=== PATIENT | male | born 1980 | race Caucasian/White ===

== ENCOUNTER 2016-07-16 15:38 | Observation (INO) | payer OTHER ==
[~2016-07-16] VITALS: Ht 165.1 cm; Wt 52.6 kg
[~2016-07-16 15:38] MED LIST: KEFLEX500 MG PO; MOTRIN600 MG PO
[2016-07-16 16:42] LABS: HEMATOCRIT 36.2 % (38.0-50.0); MCH 29.1 PG (29.0-34.0); MCHC 35.1 G/DL (30.0-36.0); MCV 82.8 FL (86-99); MEAN PLAT.VOLUME 9.8 uM^3 (9.0-12.4); PLATELET COUNT 321 K/uL (156-360); RBC DIS.WIDTH-CV 12.2 % (11.8-14.6); RBC DIS.WIDTH-SD 35.9 % (39-53); RED BLOOD COUNT 4.37 M/uL (4.00-5.50)
[2016-07-16 16:51] LABS: CHLORIDE 107 mEq/L (99-109); POTASSIUM 4.6 mEq/L (3.7-5.4); SODIUM 144 mEq/L (136-147)
[2016-07-16 16:53] LABS: GLUCOSE 83 mg/dL (70-99)
[2016-07-16 16:55] LABS: ANION GAP 9 MEQ/L (2-14)
[2016-07-16 16:57] LABS: GFR ESTIMATE (CALCULATED) > 59 mL/min/
[2016-07-16 16:58] LABS: UREA NITROGEN (BUN) 13 mg/dL (9-23)
[2016-07-16 17:04] LABS: TROP-I INTERPRETATION NEGATIVE; TROPONIN-I 0.01 ng/mL (0.0-0.30)
[2016-07-16] MEDS ORDERED: KENALOG IN ORABA5 GM DT (21:42)
[2016-07-16 22:47] VITALS: BP 109/59
[2016-07-17 03:45] VITALS: BP 102/54
[2016-07-17] MEDS ORDERED: ANTIVERT25 MG PO (13:15)
[2016-07-17] MEDS ORDERED: Thiamine,Vitamin B1 PO (13:15)
[2016-07-17] MEDS ORDERED: FOLIC ACID1 MG PO (13:15)
== END 2016-07-17 14:36 ==
LOC: EME 15:38 → EDOF 21:31 → 5WEST 21:31
PROVIDERS: Emergency Medicine
DX: R42 Dizziness and giddiness (principal); R51 Headache; R26.2 Difficulty in walking, not elsewhere classified; H55.00 Unspecified nystagmus; Z98.1 Arthrodesis status; F10.20 Alcohol dependence, uncomplicated; F17.200 Nicotine dependence, unspecified, uncomplicated; K12.0 Recurrent oral aphthae; Z80.9 Family history of malignant neoplasm, unspecified
CPT/HCPCS: 70450; 70551; 80048; 84484; 85027; 93005; 99281; 99285; G0378; G0480; J3360; J7030